=== PATIENT | female | born 1965 | race Caucasian/White ===

== ENCOUNTER → 2021-11-20 13:34 | Outpatient (CLI) | payer BC, SELFPAY ==
--- NOTE | ~2021-11-20 | MR_ITS ---
EXAMINATION: MR cervical spine wo/w con DATE: 11/20/2021 14:35 INDICATION: Other cervical disc degeneration. Right-sided neck pain. TECHNIQUE: Magnetic resonance imaging (MRI) of the cervical spine was performed without intravenous c ontrast. Sequences included sagittal T2-weighted FSE, sagittal T2-weighted FS FSE, sagittal T1-weight ed FSE, axial MERGE, and axial T2-weighted FSE. COMPARISON: Cervical spine MRI 03/18/2008 FINDINGS: Bone alignment is normal. There are changes of anterior fusion procedure from C5 to C7 with interbody devices and anterior plate and screws. There is mild chronic anterior wedging of T1, T2, a nd T3 vertebral bodies. There is mildly decreased disc height at C4-C5. The spinal cord signal intens ity is normal. The following disc levels are specifically discussed: C2-C3: The disc does not extend beyond the endplate margin. There is no uncovertebral joint osteoarth ritis. There is severe right and mild left facet joint osteoarthritis. There is mild right neural for aminal stenosis. There is no central canal stenosis. C3-C4: The disc does not extend beyond the endplate margin. There is mild bilateral uncovertebral stephan nt osteoarthritis. There is severe right and moderate left facet joint osteoarthritis. There is moder ate right and mild left neural foraminal stenosis. There is no central canal stenosis. C4-C5: The disc does not extend beyond the endplate margin. There is mild right uncovertebral joint o steoarthritis. There is mild left facet joint osteoarthritis. There is ankylosis of right facet joint with severe hypertrophy. There is mild right neural foraminal stenosis. There is no central canal st enosis. C5-C6: There is moderate right and mild left uncovertebral joint hypertrophy. There is severe right a nd mild left facet joint osteoarthritis. There is moderate right and mild left neural foraminal steno sis. There is mild central canal stenosis. C6-C7: There is severe bilateral uncovertebral joint hypertrophy. There is moderate bilateral facet j oint osteoarthritis. There is mild right and moderate left neural foraminal stenosis. There is mild c entral canal stenosis. C7-T1: The disc does not extend beyond the endplate margin. There is no uncovertebral joint osteoarth ritis. There is severe bilateral facet joint osteoarthritis. There is mild bilateral neural foraminal stenosis. There is no central canal stenosis. IMPRESSION: 1. Moderate cervical spondylosis. 2. Anterior fusion procedure from C5 to C7. Reviewed, dictated and finalized at location A.
== END ==
PROVIDERS: PCP Physician Assistant Medical; Visit Provider Physician Assistant Medical
DX: M50.30 Other cervical disc degeneration, unspecified cervical region (principal); R20.2 Paresthesia of skin; M47.892 Other spondylosis, cervical region; Z98.1 Arthrodesis status
CPT/HCPCS: 72156; A9577

== ENCOUNTER → 2022-03-13 07:36 | Outpatient (CLI) | payer BC, SELFPAY ==
--- NOTE | ~2022-03-13 | MR_ITS ---
EXAMINATION: MR thoracic spine wo con DATE: 03/13/2022 08:39 INDICATION: Thoracic back pain. TECHNIQUE: Magnetic resonance imaging (MRI) of the thoracic spine was performed without intravenous c ontrast. COMPARISON: Thoracic spine radiographs 01/31/2022 FINDINGS: There is 7 degrees levocurvature of thoracic spine. There are changes of anterior fusion pr ocedure from C5 to C7 with anterior plate and screws. There is mild chronic anterior wedging of T2, T 3, T4, T7, and L1 vertebral bodies. There are Schmorl's nodes at multiple levels. There is mildly dec reased disc height at T2-T3 and T3-T4, moderately decreased disc height at T4-T5, T5-T6, and T6-T7, s everely decreased disc height at T7-T8, moderately decreased disc height at T8-T9 and T9-T10, and mil dly decreased disc height at T12-L1 at L1-L2. The discs are bulging from T1-T2 through T9-T10. There is a central extrusion at T10-T11. There is a right central extrusion at T11-T12. The discs are bulgi ng at T12-L1 and L1-L2. There is mild central canal stenosis from T1-T2 through L1-L2. There is multi level facet joint osteoarthritis, severe on the left at T2-T3. There is multilevel mild neural forami nal stenosis bilaterally. On the right, there is moderate neural foraminal stenosis at T2-T3 and T4-T 5. On the left, there is moderate neural foraminal stenosis at T1-T2 and T3-T4. The spinal cord signa l intensity is normal. IMPRESSION: 1. Severe thoracic spondylosis. Reviewed, dictated and finalized at location A. [facility]
== END ==
PROVIDERS: PCP Physician Assistant Medical; Visit Provider Physician Assistant Medical
DX: M54.6 Pain in thoracic spine (principal); R20.2 Paresthesia of skin; M47.894 Other spondylosis, thoracic region
CPT/HCPCS: 72146

== ENCOUNTER → 2022-04-01 08:01 | Outpatient (CLI) | payer BC, SELFPAY ==
--- NOTE | ~2022-04-01 | CT_ITS ---
EXAMINATION: CT cervical spine wo con DATE: 04/01/2022 08:18 INDICATION: Neck pain. TECHNIQUE: Computed tomography (CT) of the cervical spine was performed without intravenous contrast. Automated exposure control and iterative reconstruction technique were employed. The dose-length pro duct was 181.46 mGy-cm. COMPARISON: Cervical spine MRI 11/20/2021 FINDINGS: There is mild scarring at the lung apices. There is mild emphysema. There is 3 degrees dext rocurvature of cervical spine. There are changes of anterior fusion procedures from C5 to C7 with int erbody bone graft and anterior plate and screws. The bone graft is not bridging at C5-C6 or C6-C7. Th ere is mild chronic anterior wedging of T1 and T2 vertebral bodies. There is mildly decreased disc he ight at C4-C5. The following disc levels are specifically discussed: C2-C3: There is no uncovertebral joint osteoarthritis. There is severe right and mild left facet join t osteoarthritis. There is mild right neural foraminal stenosis. There is no central canal stenosis. C3-C4: There is moderate bilateral uncovertebral joint osteoarthritis. There is severe right and mode rate left facet joint osteoarthritis. There is moderate right and mild left neural foraminal stenosis . There is mild central canal stenosis. C4-C5: There is mild right uncovertebral joint hypertrophy. There is ankylosis of the facet joints wi th severe right and mild left hypertrophy. There is moderate right neural foraminal stenosis. There i s no central canal stenosis. C5-C6: There is moderate right and mild left uncovertebral joint osteoarthritis. There is severe righ t and mild left facet joint osteoarthritis. There is moderate right and mild left neural foraminal st enosis. There is mild central canal stenosis. C6-C7: There is mild bilateral uncovertebral joint hypertrophy. There is severe right and moderate le ft facet joint osteoarthritis. There is no neural foraminal stenosis. There is mild central canal fede nosis. C7-T1: There is no uncovertebral joint osteoarthritis. There is severe bilateral facet joint osteoart hritis. There is mild bilateral neural foraminal stenosis. There is no central canal stenosis. IMPRESSION: 1. Moderate cervical spondylosis. 2. Anterior fusion procedure from C5 to C7 without bridging bone at C5-C6 or C6-C7. Reviewed, dictated and finalized at location A. [facility] [employer] [employer] IMPRESSION: 1. Moderate cervical spondylosis. 2. Anterior fusion procedure from C5 to C7 without bridging bone at C5-C6 or C6 -C7.
== END ==
PROVIDERS: PCP Physician Assistant Medical; Visit Provider Neurological Surgery
DX: M47.892 Other spondylosis, cervical region (principal); Z98.1 Arthrodesis status
CPT/HCPCS: 72125

== ENCOUNTER 2024-10-20 06:59 | Outpatient (CLI) | payer BC, SELFPAY ==
--- NOTE | ~2024-10-20 | MR_ITS ---
MRI of the thoracic spine Clinical History: Pain Technique: Axial T2-weighted and gradient images, and sagittal T1-weighted, T2- weighted, and STIR images were acquired. Findings: There is no no acute fracture or subluxation of the thoracic spine. Possible minimal chronic compression deformity is of T2 and T3. There is partially imaged marrow edema at the inferior half of the L2 vertebral body, indeterminate. There is moderate to advanced degenerative disc narrowing from T3 through T10. There are multilevel mild disc bulges at the mid to lower thoracic spine without significant canal stenosis or cord compression. There is mild left neural foraminal narrowing at T9-T10 and T10-T11. No abnormal signal seen in the spinal cord. Paravertebral soft tissues are unremarkable. Impression: [id number] degenerative spondylitic changes in the thoracic spine, as above. Partially imaged amorphous marrow edema involving the inferior portion of L2, indeterminate. This could be reactive marrow signal changes due to underlying degenerative disc disease at L2-L3. Reviewed, dictated and finalized at [facility]. Impression: [id number] degenerative spondylitic changes in the thoracic spine, as abo ve. Partially imaged amorphous marrow edema involving the inferior portion of L2, i ndeterminate. This could be reactive marrow signal changes due to underlying de generative disc disease at L2-L3.
--- NOTE | ~2024-10-20 | MR_ITS ---
MRI of the cervical spine Clinical History: Cervicalgia Technique: Axial T2-weighted and gradient images, and sagittal T1-weighted, T2- weighted, and STIR images were acquired. Findings: No acute fracture or subluxation. There is anterior fusion from C5 to C7. No suspicious bone marrow signal abnormality seen. At C2-C3, there is no disc bulge or herniation. There is right facet arthropathy. No definite neural foraminal narrowing. No canal stenosis or cord compression. At C3-C4, there is no disc bulge or herniation. There is bilateral facet arthropathy, right worse than left. There is mild right neural foraminal narrowing. Left neural foramen preserved. No canal stenosis or cord compression. At C4-C5, there is no significant disc bulge or herniation. There is right facet arthropathy with right neural foraminal narrowing. Left neural foramen preserved. No canal stenosis or cord compression. At C5-C6, there is no canal stenosis or cord compression. Probable mild right neural foraminal narrowing. Possible minimal left neural foraminal narrowing. At C6-C7, there is disc osteophyte complex with probable mild canal stenosis without faizan cord compression. There is probable bilateral neural foraminal narrowing. No abnormal signal seen in the spinal cord. Paravertebral soft tissues are unremarkable. Impression: Mild degenerative spondylitic changes overall, as detailed above. Anterior fusion from C5 to C7. Reviewed, dictated and finalized at [facility]. Impression: Mild degenerative spondylitic changes overall, as detailed above. Anterior fusion from C5 to C7.
== END 2024-10-20 07:00 | disposition home or self-care (01) ==
LOC: MICIMG 07:00
PROVIDERS: PCP Physician Assistant Medical; Visit Provider Physician Assistant Medical
DX: M50.30 Other cervical disc degeneration, unspecified cervical region (principal); M47.894 Other spondylosis, thoracic region; Z98.1 Arthrodesis status; M47.892 Other spondylosis, cervical region
CPT/HCPCS: 72141; 72146